=== PATIENT | male | born 1975 | race Caucasian/White ===

== ENCOUNTER 2016-12-13 13:00 | Inpatient (IN) | payer OTHER ==
[~2016-12-13] VITALS: Ht 167.6 cm; Wt 68.0 kg
--- NOTE | ~2016-12-13 | PN ---
Unit #: [id number] #: [id number] Patient: MICHAEL EDUARDO [id number] [facility] [address] [place] [address] [id number] I MR#: [id number] NAME: MICHAEL EDAURDO ROOM: P254 Age: 41 Sex: M Admission Date: 12/13/2016 : 1975 Attending Physician: Song Lynch M.D. Admitting Physician: Song Lynch M.D. Primary Care Physician: Generic Doctor Not In System [facility] PROGRESS NOTES DATE OF SERVICE: 12/17/2016 DISCUSSION Michael Eduardo shows improvement today. His mood is better with a brighter range of affect. He is alert and fully oriented with no psychosis. He still has some fleeting thoughts of suicide, but is up and active more and participating in groups and activities. ASSESSMENT Major depression. PLAN Anticipate discharge in the near future. Dictated by... Tati Dye/rio TD: 12/18/2016 08:37 JOB #: [id number] [facility] PROGRESS NOTES Page 1 of 1 X Song Lynch MD X PROGRESS NOTE
--- NOTE | ~2016-12-13 | PA ---
Unit #: [id number] #: [id number] Patient: MICHAEL EDUARDO [id number] [facility] [address] [place] [address] [id number] I MR#: [id number] NAME: MICHAEL EDUARDO ROOM: P254 Age: 41 Sex: M Admission Date: 12/13/2016 : 1975 Date of Assessment: 12/14/2016 Attending Physician: Song Lynch M.D. Admitting Physician: Song Lynch M.D. Primary Care Physician: Generic Doctor Not In System PSYCHIATRIC ASSESSMENT DATE OF SERVICE 12/14/2016. INFORMANTS The patient reliable; [facility], reliable; [facility], reliable. CHIEF COMPLAINT Suicidal ideation. HISTORY OF PRESENT ILLNESS Michael Eduardo is a 41-year-old man who came in reporting increasing depression, hopeless with suicidal thoughts with a plan to hang himself. He denied any substance use and says that he is unable to function in the community with his current status. He was unable to contract for safety and was admitted for stabilization. PAST PSYCHIATRIC HISTORY Previous treatment at [facility], [place], [place], and [facility] in various parts of the [facility]. He is currently taking risperidone and Prozac, but has been noncompliant. FAMILY PSYCHIATRIC HISTORY There is a family history of substance abuse and a brother who committed suicide. SOCIAL HISTORY The patient denied a history of childhood abuse or neglect. He is a single heterosexual man who has had problems with legal charges for possession of meth amphetamines in the past. He completed the ninth grade and is waiting on approval for disability. He is currently staying in a [facility], but has trouble making his financial payments. PAST MEDICAL HISTORY Significant for hepatitis C. MEDICATIONS None currently. ALLERGIES No known medication allergies. SUBSTANCE USE HISTORY The patient has a history of amphetamine abuse, but no current use in the Unit #: [id number] #: [id number] Patient: MICHAEL EDUARDO past. He also has a history of abusing amphetamines, cocaine, and cannabis. MENTAL STATUS EXAMINATION Mcihael Eduardo presented as a mildly disheveled man, who appeared his stated age. He was cooperative with the examination. His speech was spontaneous and easily understood. Musculoskeletal examination was calm. His mood was depressed with a congruent affect. He was alert and fully oriented. His memory and concentration were fair to good. His thought processes were goal directed with no active psychosis. He reported suicidal ideation and could not contract for safety outside of the hospital. Insight and judgment, fair. Fund of knowledge and abstraction, fair. ASSETS AND LIABILITIES Assets; the patient knows local resources and presents voluntarily for treatment. Liabilities; include noncompliance with medication, lack of response to recent treatment plan. ADMITTING DIAGNOSES AXIS I: Major depression, F33.2. AXIS II: No diagnosis. AXIS III: History of hepatitis C. AXIS IV: AXIS V: PSYCHIATRIC PLAN The patient was admitted and placed on suicide precautions. Prozac 40 mg daily for depression and Risperdal 4 mg at bedtime for psychiatric symptoms will be restarted with the addition of Minipress 2 mg at bedtime for nightmares and trazodone as needed for insomnia. He will enroll in psychotherapy groups and activities. Physical examination and laboratory studies will be ordered and reviewed. TREATMENT GOALS Resolution of SI, improvement in insight, and improved coping skills. DISCHARGE PLANNING Follow up with [facility]. ESTIMATED LENGTH OF STAY 5 days. Dictated by... Song Lynch M.D. [facility]/rio TD: 12/16/2016 13:49 JOB #: [id number] Unit #: [id number] #: [id number] Patient: MICHAEL EDUARDO PSYCHIATRIC ASSESSMENT Page 1 of 1 X Song Lynch MD X PSYCHIATRIC ASSESSMENT
--- NOTE | ~2016-12-13 | HP ---
Unit #: [id number] #: [id number] Patient: MICHAEL EDUARDO [id number] [place] [address] [id number] I MR#: [id number] NAME: MICHAEL EDUARDO ROOM: P259 Age: 41 Sex: M Admission Date: 12/13/2016 : 1975 Attending Physician: Song Lynch M.D. Admitting Physician: Song Lynch M.D. Primary Care Physician: Generic Doctor Not In System HISTORY AND PHYSICAL HISTORY OF PRESENT ILLNESS Michael is a 41-year-old male admitted on 12/13/[address] [place] [address] for depression and suicidal ideation. PAST MEDICAL HISTORY Asthma. PAST SURGICAL HISTORY Stomach ulcer with surgical repair. SOCIAL HISTORY Smokes 1 pack of cigarettes daily and reports a history of alcohol use, several months ago was his last use, and history of polysubstance with his last use October 27. He is currently single and homeless. FAMILY HISTORY Noncontributory. REVIEW OF SYSTEMS CONSTITUTIONAL: No fever or chills. HEENT: Denies any sore throat, ear pain or runny nose. CARDIOVASCULAR: Denies chest pain, irregular heart rhythm or palpitations. CHEST: Denies shortness of breath or cough. No hemoptysis. GASTROINTESTINAL: Denies nausea, vomiting, diarrhea or chronic constipation. ENDOCRINE: Denies history of increased thirst or urination. No recent significant weight loss or gain. GENITOURINARY: Denies dysuria, frequency, or hematuria. SKIN: Denies any rashes. HEMATOLOGIC: Denies history of increased bleeding or bruising. MUSCULOSKELETAL: Denies any hot, swollen joints. No generalized muscle pain. NEUROLOGIC: Denies problems with vision or speech. No frequent, severe headaches. No numbness, tingling or weakness in any extremities. Denies loss of bladder or bowel control. CURRENT MEDICATIONS Prozac, Risperdal, prazosin, Ventolin inhaler, and ibuprofen. ALLERGIES No known drug allergies. PHYSICAL EXAMINATION Unit #: [id number] #: [id number] Patient: MICHAEL EDUARDO GENERAL: Alert, oriented, no acute distress. VITAL SIGNS: Blood pressure 112/71, heart rate 71, respirations 18, and temperature 97.7. HEIGHT: 5 feet 6. WEIGHT: 150 pounds. SKIN: Warm, dry. No rashes or lesions, track flores, cuts, etc. HEENT: Normocephalic. TMs not viewed. Oronasal passages clear. Conjunctivae clear. PERRLA. EOM is intact. NECK: No lymphadenopathy or thyromegaly. HEART: Regular rate and rhythm. No murmur, gallop, or rub. LUNGS: Clear to auscultation bilaterally. ABDOMEN: Soft, nontender without palpable masses or hepatosplenomegaly. : Not assessed. EXTREMITIES: No evidence of cyanosis, clubbing, or edema. Moves all extremities independently without obvious deficit. NEUROLOGICAL: Grossly within normal limits. Cranial Nerves: II: Visual razo are intact. III, IV AND : Extraocular movements are intact. Pupils are equal, round and reactive to light. V: Facial sensation is grossly normal. VII: Facial movements and expression are normal. VIII: Auditory acuity grossly intact. IX, X: Uvula is midline. Phonation is normal. XI: Patient shrugs shoulders and turns head normally. XII: Tongue protrudes in the midline. Sensory and Motor Function: Sensory and motor sensation is grossly normal. Motor: moves all extremities well. Coordination: Gait is normal. Deep Tendon Reflexes: Intact. IMPRESSION 1. Psychiatric admission. 2. Asthma. RECOMMENDATIONS PSYCHIATRIC: Per psychiatrist. MEDICAL: No contraindication to participating in this facility's activities. MEDICAL PROGNOSIS Good. MEDICAL CONDITION Stable. Dictated by... Teetee Ca TD: 12/14/2016 15:43 JOB #: [id number] Unit #: [id number] #: [id number] Patient: MICHAEL EDUARDO HISTORY AND PHYSICAL Page 1 of 1 X GERONIMO KELLEY APRN HISTORY AND PHYSICAL
--- NOTE | ~2016-12-13 | DS ---
Unit #: [id number] #: [id number] Patient: MICHAEL EDUARDO [id number] [facility] [address] [place] [address] [id number] I MR#: [id number] NAME: MICHAEL EDUARDO ROOM: P254 Age: 41 Sex: M Admission Date: 12/13/2016 : 1975 Discharge Date: 12/18/2016 Attending Physician: Song Lynch M.D. Primary Care Physician: Generic Doctor Not In System DISCHARGE SUMMARY REASON FOR ADMISSION Michael is a 41-year-old man with increasing hopelessness, helplessness, and suicidal ideation. He was unable to contract for safety and was admitted for stabilization. DIAGNOSTIC STUDIES LABORATORY RESULTS: Please see hospital chart. HOSPITAL COURSE The patient was admitted and placed on suicide precautions. Prozac, risperidone, and Minipress were restarted from his previous treatment plan as well as the addition of trazodone for insomnia. He participated briefly, but appropriately in unit groups and activities and had no parasuicidal behaviors on the unit. He was able to contract for safety on the date of discharge with a better mood, brighter affect, and a plan to stay in [place] and seek further treatment. DISCHARGE DIAGNOSES AXIS I: Major depression, F33.2. AXIS II: No diagnosis. AXIS III: History of hepatitis C. AXIS IV: AXIS V: DISCHARGE INSTRUCTIONS Follow up with [facility] care. DISCHARGE MEDICATIONS Prozac 40 mg daily for depression, Risperdal 4 mg at bedtime for mood stability, Minipress 2 mg at bedtime for nightmares, trazodone 75 mg at bedtime as needed for insomnia. Proventil inhaler every 4 hours p.r.n. shortness of air was provided by primary care physician. CONDITION AT DISCHARGE Improved. PROGNOSIS Fair to good. DIET AND ACTIVITY Ad taurus. Unit #: [id number] #: [id number] Patient: MICHAEL EDUARDO Dictated by... Song Lynch M.D. H/modl TD: 12/18/2016 12:36 JOB #: [id number] DISCHARGE SUMMARY Page 1 of 1 X Song Lynch MD DISCHARGE SUMMARY
--- NOTE | ~2016-12-13 | PN ---
Unit #: [id number] #: [id number] Patient: MICHAEL EDUARDO [id number] [facility] [address] [place] [address] [id number] I MR#: [id number] NAME: MICHAEL EDUARDO ROOM: P254 Age: 41 Sex: M Admission Date: 12/13/2016 : 1975 Attending Physician: Song Lynch M.D. Admitting Physician: Song Lynch M.D. Primary Care Physician: Generic Doctor Not In System [facility] PROGRESS NOTES DATE OF SERVICE: 12/16/2016 DISCUSSION Michael continues to be compliant with his medications. He denies any adverse side effects today. He is attending groups and activities and has a little bit brighter affect today. He is alert and fully oriented with no psychosis. ASSESSMENT Major depression. PLAN Continue current treatment plan. Dictated by... Tati DyeH/rio TD: 12/18/2016 11:55 JOB #: [id number] [facility] PROGRESS NOTES Page 1 of 1 X Song Lynch MD PROGRESS NOTE
[2016-12-14 12:38] LABS: BASOPHIL# 0.1 X10e3 (0-0.3); EOSINOPHIL# 0.1 X10e3 (0-0.7); EOSINOPHIL% 2.1 % (0.0-7.0); HEMATOCRIT 47.7 % (38.0-50.0); HEMOGLOBIN 15.6 gm/dL (13.0-16.0); LYMPHOCYTE# 2.4 X10e3 (1.0-3.5); MEAN CELL VOLUME 92.1 FL (83-96); MEAN CORPUSCULAR HEMOGLOBIN 30.1 PG (28-34); MEAN CORPUSCULAR HGB CONC 32.6 g/dL (30-36); MEAN PLATELET VOLUME 8.8 FL (6.5-11.5); MONOCYTE# 0.4 X10e3 (0-1.0); MONOCYTE% 5.9 % (3.0-12.0); PLATELET COUNT 278 X10e3 (140-420); RED BLOOD COUNT 5.18 X10e (3.90-5.60); RED CELL DISTRIBUTION WIDTH 13.9 % (11.0-15.5)
[2016-12-14 12:43] LABS: DIFF IND NO
[2016-12-14 12:52] LABS: URINE APPEARANCE CLEAR; URINE BILIRUBIN NEG (NEG); URINE BLOOD NEG (NEG); URINE COLOR YELLOW; URINE GLUCOSE NEG (NEG); URINE KETONE NEG (NEG); URINE LEUKOCYTE ESTERASE NEG (NEG); URINE NITRATE NEG (NEG); URINE PH 5.5 (5-8); URINE PROTEIN NEG (NEG); URINE SPECIFIC GRAVITY 1.024 (1.003-1.035); URINE UROBILINOGEN 0.2 MG/DL (NEG)
[2016-12-14 13:13] LABS: ALBUMIN SERUM 4.2 g/dL (3.5-5.0); BILIRUBIN,TOTAL 0.5 mg/dL (0.2-2.0); CALCIUM SERUM 9.7 mg/dL (8.4-10.2); GLOM FILT RATE Estimated 94.4 mL/min (>60); POTASSIUM 5.4 mmol/L (3.5-5.1); PROTEIN TOTAL SERUM 7.2 g/dL (6.0-8.3)
[2016-12-14 14:07] LABS: AMPHETAMINE POS (NEG); BARBITURATES NEG (NEG); BENZODIAZEPINES NEG (NEG); COCAINE NEG (NEG); MARIJUANA NEG (NEG); OPIATES NEG (NEG); TRICYCLIC ANTIDEPRESSANTS NEG (NEG); U METHADONE NEG (NEG)
== END 2016-12-18 13:30 | disposition home or self-care (01) | DRG 881 ==
LOC: P2L 18:33
PROVIDERS: Psychiatry & Neurology Psychiatry
DX: F32.9 Major depressive disorder, single episode, unspecified (principal); R45.851 Suicidal ideations; Z86.19 Personal history of other infectious and parasitic diseases; Z81.8 Family history of other mental and behavioral disorders; Z81.3 Family history of other psychoactive substance abuse and dependence; F17.210 Nicotine dependence, cigarettes, uncomplicated; J45.909 Unspecified asthma, uncomplicated; Z59.0 Homelessness
CPT/HCPCS: 80053; 80307; 81003; 85025